=== PATIENT | male | born 1940 | race American Indian/Alaskan Native ===

== ENCOUNTER 2021-07-30 10:06 | Outpatient (CLI) | payer OTHER ==
[2021-07-30 11:03] LABS: Blood Urea Nitrogen 27 mg/dL (9-20)
--- NOTE | 2021-07-30 12:51 | Cat Scan Report ---
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 Patient reports pro gressive increase in size of right testicle over the past 30 years. TECHNIQUE: Axial CT images were obtained through the pelvis without contrast. All CT scans at this [facility] are performed using CT dose reduction for ALARA by means of automated exposure control. COMPARISON: None available. FINDINGS: BOWEL: No significant abnormality. APPENDIX: Not seen. PERITONEUM: No free fluid. No free air. No fluid collection. LYMPH NODES: No significant adenopathy. ARTERIES: Mild atherosclerotic calcification without acute abnormality. VEINS: No significant abnormality. URINARY BLADDER: No significant abnormality. REPRODUCTIVE ORGANS: There is asymmetric enlargement of the right testicle with generalized heterogen eity noted along the right testicle. A moderate right hydrocele is noted. There is moderate enlargeme nt of the prostate gland. No other significant abnormality. ADDITIONAL FINDINGS: None. SKELETAL SYSTEM: No significant abnormality. IMPRESSION: 1. Nonspecific enlargement and heterogeneity of the right testicle, which could be secondary to the p resence of an intratesticular mass given the provided history. Please correlate with scrotal ultrasou nd findings. 2. No evidence of metastatic disease in the pelvis. 3. Additional findings as above. Signer Name: Mark Park MD Signed: 07/30/2021 12:47 PM Workstation Name: [employer]
== END 2021-07-30 10:07 | disposition home or self-care (01) ==
LOC: CT 10:06
PROVIDERS: ATTEND Family Medicine
DX: N40.0 Benign prostatic hyperplasia without lower urinary tract symptoms (principal); I70.90 Unspecified atherosclerosis; D29.20 Benign neoplasm of unspecified testis; N43.3 Hydrocele, unspecified
CPT/HCPCS: 36415; 72194; 82565; 84520; Q9967